=== PATIENT | female | born 2000 | race Caucasian/White ===

== ENCOUNTER → 2021-11-01 | Outpatient (CLI) | payer BC ==
[~2021-11-01] VITALS: Ht 160 cm; Wt 48.1 kg
[~2021-11-01] MED LIST: VENTOLIN HFA 66.7 GM INH; ZITHROMAX250 MG PO
[2021-11-01 15:49] LABS: HEMOGLOBIN 12.6 gm/dl (12.3-15.3); RED BLOOD COUNT 4.21 M/UL (4.00-5.10); WHITE BLOOD COUNT 6.4 K/UL (4.5-11.0)
[2021-11-01 17:00] LABS: BUN/CREATININE RATIO 14 (0-10)
== END ==
LOC: OPSV 14:00
PROVIDERS: Obstetrics & Gynecology
DX: O00.90 Unspecified ectopic pregnancy without intrauterine pregnancy (principal); Z3A.00 Weeks of gestation of pregnancy not specified
CPT/HCPCS: 80053; 84702; 85027; 96372; J9250

== ENCOUNTER → 2021-11-04 | Outpatient (CLI) | payer BC ==
[2021-11-04 09:15] LABS: HEMOGLOBIN 12.3 gm/dl (12.3-15.3); RED BLOOD COUNT 4.1 M/UL (4.00-5.10); WHITE BLOOD COUNT 4.8 K/UL (4.5-11.0)
[2021-11-04 09:39] LABS: BUN/CREATININE RATIO 16 (0-10)
== END ==
LOC: LAB 09:01
PROVIDERS: Obstetrics & Gynecology
DX: O00.90 Unspecified ectopic pregnancy without intrauterine pregnancy (principal); Z3A.00 Weeks of gestation of pregnancy not specified
CPT/HCPCS: 36415; 80053; 84702; 85027

== ENCOUNTER → 2021-11-07 | Outpatient (CLI) | payer BC | LOC: LAB 08:02 | DX: O00.90 Unspecified ectopic pregnancy without intrauterine pregnancy (principal) | CPT/HCPCS: 36415; 84702 ==

== ENCOUNTER 2021-11-15 07:19 | Emergency (ER) | payer BC ==
[2021-11-15 07:59] LABS: HEMOGLOBIN 12.1 gm/dl (12.3-15.3); RED BLOOD COUNT 4.13 M/UL (4.00-5.10); WHITE BLOOD COUNT 4.5 K/UL (4.5-11.0)
[2021-11-15 09:36] LABS: BUN/CREATININE RATIO 15 (0-10)
[2021-11-15] MEDS ORDERED: ZOFRAN ODT 4 MG4 MG SL (11:06)
[2021-11-15] MEDS ORDERED: NAPROSYN500 MG PO (11:06)
== END 2021-11-15 11:31 | disposition home or self-care (01) ==
LOC: ER1 07:19
PROVIDERS: Physician Assistant Medical
DX: O99.891 Other specified diseases and conditions complicating pregnancy (principal); R10.11 Right upper quadrant pain; Z88.8 Allergy status to other drugs, medicaments and biological substances; Z3A.01 Less than 8 weeks gestation of pregnancy
CPT/HCPCS: 80053; 81001; 84702; 85025; 85652; 86140; 96374; 96375; 99284; J1885; J2270; J2405; J2550; J7030; Q9967

== ENCOUNTER → 2022-06-07 | Outpatient (CLI) | payer BC ==
[~2022-06-07] MED LIST changes: +NAPROSYN500 MG PO; +ZOFRAN ODT 4 MG4 MG SL
== END ==
LOC: LAB 17:39
DX: Z34.90 Encounter for supervision of normal pregnancy, unspecified, unspecified trimester (principal)
CPT/HCPCS: 84702

== ENCOUNTER 2022-07-04 07:52 | Emergency (ER) | payer BC ==
[2022-07-04 08:41] LABS: HEMOGLOBIN 12.3 gm/dl (12.3-15.3); RED BLOOD COUNT 4.09 M/UL (4.00-5.10)
[2022-07-04 09:00] LABS: BUN/CREATININE RATIO 15 (0-10)
== END 2022-07-04 10:04 | disposition home or self-care (01) ==
LOC: ER1 07:52
PROVIDERS: Nurse Practitioner
DX: O20.9 Hemorrhage in early pregnancy, unspecified (principal); Z3A.01 Less than 8 weeks gestation of pregnancy
CPT/HCPCS: 80053; 81001; 84702; 85025; 96374; 96375; 99284; J1170; J2270; J2405